=== PATIENT | female | born 1975 | race Caucasian/White ===

== ENCOUNTER → 2020-10-21 10:48 | Outpatient (CLI) | payer OTHER, SELFPAY ==
[2020-10-21] MEDS: COVID-19 VACC, Ad26(JANSSEN)/PF 0.5 ML IM (10:53)
== END ==
PROVIDERS: Visit Provider Internal Medicine
DX: Z23 Encounter for immunization (principal)
CPT/HCPCS: 0031A; 91303

== ENCOUNTER → 2024-12-18 13:44 | Outpatient (CLI) | payer OTHER, SELFPAY ==
--- NOTE | 2024-12-18 13:47 | DI.RAD.S_ITS ---
PROCEDURE: XR ANKLE RT MIN 3V INDICATIONS: Right ankle twisting injury TECHNIQUE: 3 views of the ankle were acquired. COMPARISON: None. FINDINGS: Bones: Small linear calcifications are present at the distal aspect of the fibula. Soft tissues: Lateral malleolar edema. Achilles tendon appears normal. IMPRESSION: Lateral malleolar edema with linear calcifications along the distal fibular tip. Avulsion injury cannot be excluded. Dictated by: Oanh Smith M.D. on 12/18/2024 at 14:15 Approved by: Oanh Smith M.D. on 12/18/2024 at 14:16
== END ==
PROVIDERS: PCP Nurse Practitioner Family; Referring Provider Nurse Practitioner Family; Visit Provider Nurse Practitioner Family
DX: S99.911A Unspecified injury of right ankle, initial encounter (principal); M25.471 Effusion, right ankle; X50.0XXA Overexertion from strenuous movement or load, initial encounter
CPT/HCPCS: 73610

== ENCOUNTER → 2024-12-29 10:36 | Outpatient (CLI) | payer OTHER, SELFPAY ==
--- NOTE | 2024-12-29 | DI.MRI.S_ITS ---
PROCEDURE: MR ANKLE RT WO CON INDICATIONS: ACTUE RT ANKLE PAIN TECHNIQUE: Noncontrast sagittal T1 spin echo and T2 fast spin echo with fat saturation, axial proton density fast spin echo and T2 fast spin echo with fat saturation, coronal T1 spin echo and T2 fast spin echo with fat saturation through the ankle/hindfoot. COMPARISON: [facility] Outside Film, MR, MR ANKLE RIGHT WITHOUT CONTRAST, 09/18/2019, 10:25. [facility], CR, XR ANKLE 3+ VIEWS RIGHT, 12/24/2024, 8:48. FINDINGS: Image quality: Excellent Tendons: The posterior tibialis, flexor digitorum longus, and the flexor hallucis longus are unremarkable. The extensor tendons are unremarkable. Mild tenosynovitis of the peroneal tendon, with longitudinal split tear of the peroneal brevis. The peroneal longus tendon is intact. Mild tendinosis of the distal Achilles tendon, without tear. Ligaments: Full-thickness tear of the inferior aspect of the anterior tibiofibular ligament. The posterior tibiofibular ligament is intact. Full-thickness tear of the anterior talofibular ligament, with associated soft tissue edema. There is mild marrow edema at the insertion of the talofibular ligament at the talus, favor reactive. The posterior talofibular ligament is intact. The calcaneofibular ligament is grossly intact. Mild sprain of the of the deep portion deltoid ligament. Sinus tarsi : no fibrosis Plantar fascia: Mild thickening of the central cord, raising concern for mild plantar fasciitis. Muscle: Normal in signal. No muscle edema or fatty atrophy. Bones: Marrow edema of the anterior aspect of the medial malleolus, with corresponding marked marrow edema of the medial aspect of the talus neck, concerning for marrow contusion. No acute fracture. Small tibiotalar and posterior subtalar effusion. Small amount of fluid within the Gruberi bursa. Marked edema in Kager's fat pad. Circumferential subcutaneous edema of the ankle. IMPRESSION: 1. Longitudinal split tear of the peroneal brevis. 2. Full-thickness tear of the inferior aspect of the anterior tibiofibular ligament. 3. Full-thickness tear of the anterior talofibular ligament with subjacent reactive marrow edema in the talus. 4. Mild plantar fasciitis. 5. Marrow edema of the anterior aspect of the medial malleolus with marked marrow edema of the medial aspect of the talus neck, concerning for marrow contusion. No acute fracture. Dictated by: Sepideh Cortez M.D. on 12/29/2024 at 12:05 Approved by: Sepideh Cortez M.D. on 12/29/2024 at 12:17
== END ==
PROVIDERS: Referring Provider Podiatrist; Visit Provider Podiatrist
DX: M25.571 Pain in right ankle and joints of right foot (principal); S96.811A Strain of other specified muscles and tendons at ankle and foot level, right foot, initial encounter; S93.431A Sprain of tibiofibular ligament of right ankle, initial encounter; S93.491A Sprain of other ligament of right ankle, initial encounter; M72.2 Plantar fascial fibromatosis; M25.471 Effusion, right ankle
CPT/HCPCS: 73721